=== PATIENT | female | born 1970 | race Caucasian/White ===

== ENCOUNTER → 2023-01-21 | Outpatient (CLI) | payer OTHER, SELFPAY ==
--- NOTE | 2023-01-21 09:00 | EMB_PTH ---
PATIENT: NINO RIVERA LOC: [facility] U#:[id number] AGE/SX: 52/F ROOM: RE01/21/[address]: Dr. Jonelle Blevins DO : 1970 BED: DIS: 01/21/2023 SPEC #: [id number] RECD: 01/21/23 18:50 STATUS: PAULINE RETara #: [id number] DEO: 01/21/23 09:[address]: Jonelle Blevins DEPT: SURGICAL PATHOLOGY RECD BY: Suzanne Rodriguez Tissues: Endometrium, NOS Procedures: Surgery Specimen Level IV HEADER OPERATION: Endometrial biopsy PRE-OP DIAGNOSIS: Abnormal uterine bleeding TISSUE SUBMITTED: Endometrial biopsy MICROSCOPIC DIAGNOSIS Endometrium, biopsy: Disordered proliferative endometrium with focal glandular and stromal breakdown. AM:rambo 01/23/2023 MICROSCOPIC DESCRIPTION Slides are reviewed. GROSS DESCRIPTION Received in fixative is one container labeled with the patient's name and designated endometrial biopsy. The specimen consists of multiple irregular fragments of red-anne soft tissue that in aggregate measure 2.5 x 2.0 x 0.2 cm. The specimen is totally submitted in one cassette. / AM:rambo 01/22/2023 :5 CPT: 63359
[2023-01-21 17:07] LABS: Hematocrit 34.4 % (37-47); Hemoglobin 10.5 g/dL (12.0-15.0); Mean Corp Hgb Conc 30.5 g/dL (32-36); Mean Corpuscular Hgb 25.2 pg (27.0-32.0); Mean Corpuscular Volume 82.7 fL (81-99); Mean Platelet Vol. 10.4 fl (6.2-12.0); Platelet Count 286 K/mm3 (150-450); RBC Distribution Width CV 14.3 % (11.6-14.6); RBC Distribution Width SD 42.8 fl (35.1-43.9); Red Blood Count 4.16 M/mm3 (4.2-5.4); White Blood Count 6.2 K/mm3 (4.4-11.0)
[2023-01-21 19:47] LABS: Follicle Stimulating Hormone 20.4 mIU/mL; Luteinizing Hormone 15.3 mIU/mL; Prolactin 6.3 ng/mL; T4 Free Direct 0.76 ng/dL (0.76-1.46); Thyroid Stim Hormone (TSH) 2.83 uIU/mL (0.358-3.74)
[2023-01-29 10:09] LABS: HPV APTIMA, High Risk Negative (Negative)
== END | disposition home or self-care (01) ==
LOC: WOBLAB 16:10
PROVIDERS: Visit Provider Student in an Organized Health Care Education/Training Program
DX: N93.9 Abnormal uterine and vaginal bleeding, unspecified (principal); Z12.4 Encounter for screening for malignant neoplasm of cervix
CPT/HCPCS: 36415; 83001; 83002; 84146; 84439; 84443; 85027; 87624; 88175; 88305; G0145

== ENCOUNTER 2023-04-24 05:27 | Day surgery (SDC) | payer SELFPAY, OTHER ==
--- NOTE | 2023-04-18 09:28 | EKG12_ITS ---
Test Reason : PREOP Blood Pressure : / mmHG Vent. Rate : 072 BPM Atrial Rate : 072 BPM P-R Int : 136 ms QRS Dur : 076 ms QT Int : 366 ms P-R-T Axes : 042 043 062 degrees QTc Int : 400 ms Normal sinus rhythm Normal ECG Confirmed by JARROD LEMON ([id number]), editor & co founder BRANDI SNOW ([id number]) on 04/22/2023 9:04:45 AM Referred By: Jonelle Blevins Confirmed By:JARROD LEMON
[2023-04-18 13:07] LABS: Hematocrit 39.3 % (37-47); Hemoglobin 11.6 g/dL (12.0-15.0); Mean Corp Hgb Conc 29.5 g/dL (32-36); Mean Corpuscular Hgb 23.4 pg (27.0-32.0); Mean Corpuscular Volume 79.4 fL (81-99); Mean Platelet Vol. 10.4 fl (6.2-12.0); Platelet Count 268 K/mm3 (150-450); RBC Distribution Width CV 16.7 % (11.6-14.6); RBC Distribution Width SD 47.1 fl (35.1-43.9); Red Blood Count 4.95 M/mm3 (4.2-5.4); White Blood Count 5.4 K/mm3 (4.4-11.0)
[2023-04-18 13:13] LABS: Magnesium 2.5 mg/dL (1.6-2.6)
[2023-04-18 13:18] LABS: International Normalized Ratio 0.9; Prothrombin Time (Protime)PT. 12.5 SECONDS (11.7-14.9)
[2023-04-18 13:19] LABS: Partial Thromboplast Time 30.2 Seconds (24.1-36.2)
[2023-04-24] VITALS (12 sets, daily range): BP systolic 109–134; BP diastolic 67–87; PULSE 58–98; RESP 12–16; TEMP 36.3–36.9; O2SAT 95–99; BMI 35.4
[2023-04-24 05:48] LABS: Internal QC Validated? YES +Cl - CLEAR BKGD; Pregnancy, Urine Negative Negative
[2023-04-24] MEDS: Lactated Ringers 1,000 ML 40 ML IV (06:27)
[2023-04-24] MEDS: Gabapentin 600 MG Tablet PO (06:29)
[2023-04-24] MEDS: dexAMETHasone 4 MG/ML Vial 8 MG IV (06:29)
[2023-04-24] MEDS: Acetaminophen 500 MG Tablet 1000 MG PO ×2 (06:29→13:06)
[2023-04-24] MEDS: Magnesium 1 GM over 15 mins IV (06:30)
[2023-04-24 06:34] LABS: Bedside Glucose 96 mg/dL (74-106)
--- NOTE | 2023-04-24 07:13 | PCM.HP.BLA ---
History and Physical Date of Admission: 04/24/23 HPI: 52-year-old female with abnormal uterine bleeding and prolapse plan for total laparoscopic hysterectomy, bilateral salpingo-oophorectomy, uterosacral ligament suspension, anterior repair, cystoscopy. Denies headache or vision changes, chest pain or shortness of breath, nausea or vomiting, diarrhea constipation, fevers or chills. [employer] history: Medical history: Denies Surgical history: 1. Tubal ligation 2007 2. Cholecystectomy 2013 3. Tonsillectomy age 10 4. ACL/meniscus repair 2021 Medications: Denies Allergies: Adhesive tape causes a rash Family history: Denies history of blood clots or bleeding disorders, no issues with anesthesia Social history: Denies tobacco, alcohol, drug use review of system: Negative otherwise stated above Physical exam: Blood pressure 133/72, heart rate 74, respiratory rate 16, temp 98.3 ?F, oxygen saturation 99% on room air General: No acute distress HEENT: Normal cephalic/atraumatic Cardiac: Regular rate rhythm Respiratory: Clear to auscultation bilaterally Abdomen: Soft, nontender Extremities: No edema Musculoskeletal: Moves all extremities equally Neurologic: No focal deficits Assessment/plan: 52-year-old female with abnormal uterine bleeding and prolapse plan for total laparoscopic hysterectomy, bilateral salpingo-oophorectomy, uterosacral ligament suspension, anterior repair, cystoscopy. All risk, benefits, alternatives discussed with patient. Risk include but are not limited to: Risk of bleeding to the point of transfusion, infection, injury to surrounding tissue including bowel/bladder potentially requiring prolonged Stovall catheter use/major abdominal vessels, VTE, ICU admission. Patient aware and consented.
--- NOTE | 2023-04-24 07:16 | OP.PCM_ITS ---
Report of Operation Date of Procedure: 04/24/23 Pre-Operative Diagnosis: Abnormal uterine bleeding, prolapse Post-Operative Diagnosis: Abnormal uterine bleeding, prolapse Surgery/Procedure Performed:: Total laparoscopic hysterectomy, bilateral salpingo-oophorectomy, lysis of adhesions, uterosacral ligament suspension, cystoscopy Description of Surgical Findings:: Normal-appearing external genitalia. Normal-appearing cervix. Normal appearing bilateral fallopian tubes and uterus. Moderate amount of omental adhesions to the left pelvic sidewall and anterior abdominal wall, extending to the left round ligament as well. Surgeon: Jonelle Belvins radiator core tester: Jose Cruz Healy Type of Anesthesia: General Specimen's removed: Uterus, cervix, bilateral fallopian tubes and ovaries Estimated Blood Loss (mL): 50 cc Fluids Replaced: 1800 cc Description of Procedure: Indications/Risks/Benefits: 52-year-old female with abnormal uterine bleeding and prolapse plan for total laparoscopic hysterectomy, bilateral salpingo- oophorectomy, uterosacral ligament suspension, anterior repair, cystoscopy. All risk, benefits, alternatives discussed with patient. Risk include but are not limited to: Risk of bleeding to the point of transfusion, infection, injury to surrounding tissue including bowel/bladder potentially requiring prolonged Stovall catheter use/major abdominal vessels, VTE, ICU admission. Patient aware and consented. Procedure: Patient taken to the operating room and placed under general anesthesia. Patient placed in the dorsal lithotomy position and prepped and draped in the usual sterile fashion. Stovall catheter placed. Weighted speculum placed in posterior vagina and Ivey retractor used to visualize cervix. Anterior lip of the cervix grasped with single-tooth tenaculum. Cervix gradually dilated. Uterus sounded to 10 cm. Two [id number] stitches placed at the 3 and 9 o'clock position on the cervix. Three cm uterine manipulator placed. Gloves were changed and attention turned to the anterior abdominal wall. Supraumbilical incision made with scalpel and subcutaneous tissue dissected off the fascia bluntly. Fascia grasped with Isabel clamps and incised with scalpel. Fascia tagged on either side with suture. Peritoneum grasped with hemostats and incised with scalpel. Peritoneum entered. Trocar placed. Abdomen insufflated noting findings above. Due to location of adhesions, a 5 mm trocar was placed at Ziegler's point. Right lower quadrant trocar also placed under direct visualization. Adhesions were lysed carefully using LigaSure device and blunt dissection. Bilateral ureters identified. Left IP ligament coagulated and cut. Dissection carried towards the left side of the uterus. Left round ligament incised. Vesicouterine peritoneum identified and incised, creating a bladder flap carried down to anterior cervix. Right IP ligament coagulated and cut using LigaSure device. Right round ligament incised and bladder flap extended. Uterus retroverted and bladder flap further dissected using blunt and sharp dissection. Dissection carried down the right and left sides of the uterus using LigaSure device. Further dissection of the bladder away from the anterior cervix completed using blunt and sharp dissection again. Uterine arteries coagulated and cut on the left side of the uterus. Uterine arteries coagulated cut on the right side of the uterus in similar fashion. Bilateral uterine arteries dissected away from the colpotomy cup. Colpotomy started at the left side and completed circumferentially. Uterus, bilateral fallopian tubes and ovaries removed through the vagina. Insufflation stopped. Bilateral uterosacral ligaments grasped with Allis clamp. Suture placed through the uterine ligaments and through the posterior vagina. Tagged. Vagina closed in a vertical fashion with a running stitch. Uterosacral suture tied, elevating the vaginal apex. Vagina irrigated, slight oozing noted. [id number]-ko-wclro suture placed in vagina irrigated again. Vagina noted to be h emostatic. Minimal anterior prolapse noted at this time. Therefore anterior repair was not completed. Cystoscopy was then completed. Stovall catheter removed. Cystoscope placed through the urethra noting intact bladder dome and bilateral ureteral jets. Cystoscope removed. Gloves changed and attention turned to the anterior abdominal wall again. Abdomen insufflated. Pelvis irrigated and suction. Hemostasis confirmed. Maribel placed along the vaginal cuff closure. Abdomen desufflated. Trocars removed. Supraumbilical fascia closed with running stitch. Skin closed with subcuticular stitch and skin glue. At the end of the procedure all needle, lap, sponge counts were correct. . UOP: 1200cc clear urine Complications None Admit VTE Documentation VTE Mechan Device Prophylaxis: SCD's
--- NOTE | 2023-04-24 07:17 | DCINST_ITS ---
Discharge Instructions Diet Discharge Diet: No restrictions Activity Discharge Activity: Return to Normal Activity and May Shower May resume sexual activity in: 6 weeks Weight Bearing Status: Weight bearing as tolerated Dressing / Incision Call your doctor if your incision/area has: Continuous Slow Oozing, Increased Redness and Foul Smelling Discharge Call your doctor if you observe: Fever of 101 or Higher, Inability to urinate, Inability to have a bowel movement, Using more than 1 pad per hour, Shortness of breath, Swelling in the ankles, Chest pain and Uncontrolled pain Cleanse incision/area with: Soap & Water and Keep Dressing Clean & Dry Follow Up Care Please Follow Up With: Jonelle Blevins DO When: 2 weeks post operative appointment Test Results: Test results from this visit will be discussed in further detail at your follow- up appointment, if applicable. Discharge Plan Admission Primary Reason for Your Visit: Hysterectomy Attending Provider: Jonelle Blevins Primary Care Provider: Cy Abbasi Discharge Orders/Prescriptions Prescriptions: New oxycodone 5 mg tablet 5 mg PO Q6H PRN (Reason: pain (scale score 7-10)) 4 Days Qty: 14 0RF Disposition Disposition (needs filled in before D/C Order can be placed): Home, Self Care
[2023-04-24] MEDS: Cefazolin 2 GM in 0.9% Normal Saline 100 ML IV (07:23)
--- NOTE | 2023-04-24 07:30 | HYST_PTH ---
PATIENT: NINO RIVERA LOC: [facility] – [place] U#:[id number] AGE/SX: 52/F ROOM: RE04/24/[address]: Dr. Jonelle Blevins DO : 1970 BED: DIS: 04/24/2023 SPEC #: [id number] RECD: 04/24/23 11:49 STATUS: PAULINE RETara #: [id number] DEO: 04/24/23 07:[address]: Jonelle Blevins DEPT: SURGICAL PATHOLOGY RECD BY: Ruth Justin ENTERED: 04/24/23 13:27 SP TYPE: HYSTERECT OTHR DR: Dr. Cy Abbasi MD Tissues: Uterus, NOS Procedures: Surgery Specimen Level V HEADER OPERATION: Hysterectomy, TLH, BSO, cysto uterosacral ligament PRE-OP DIAGNOSIS: Abnormal uterine bleeding and prolapse plan TISSUE SUBMITTED: Uterus, ovaries, fallopian tubes MICROSCOPIC DIAGNOSIS Uterus, cervix, bilateral fallopian tubes and ovaries, hysterectomy and bilateral salpingo-oophrectomy: Cervix - mild chronic cystic cervicitis. Endometrium - proliferative endometrium with focal cystic changes. Myometrium - focal adenomysosis. Right fallopian tube - hydrosalpinx, s/p tubal occlusion Left fallopian tube - hematosalpinx, s/p tubal occlusion Right ovary - cystic corpora albicans Left ovary - simple serous cystadenoma (1.0 cm in greatest dimension SJ: 04/25/2023 MICROSCOPIC DESCRIPTION Slides are reviewed. GROSS DESCRIPTION Received in fixative is one container labeled with the patient's name and designated uterus. The specimen consists of a hysterectomy specimen consisting of uterus, cervix and attached bilateral fallopian tubes and ovaries. The uterus with cervix weighs 131 gm and measures 10 x 7 x 5 cm. The serosal surface is smooth. The ectocervical mucosa is unremarkable. The external os is circular in contour. The endocervical canal measures 4.0 cm in length and the endocervical mucosa is unremarkable. The triangular endometrial cavity measures 4.5 cm in length and 2.5 cm in width. The endometrium is anne, glistening and measures 0.1 cm in thickness. Sections of the uterine wall do not reveal any mass lesions and measures 2.5 cm in thickness. The right fallopian tube measures 5.5 cm in length and 0.5 cm in diameter. Fimbrial end is identified. Fallopian tube is interrupted in middle and shows a plastic o-ring. Proximal portion of fallopian tube is dilated and filled with clear fluid. The right ovary measures 2.5 x 2 x 1.5 cm, Sections reveal a cyst measuring 1.0 cm in greatest dimension. The left fallopian tube measures 6 cm in length and 1.0 cm in diameter. Fimbrial end is identified. Fallopian tube is interrupted in middle and shows a plastic o-ring. Proximal portion of fallopian tube is dilated and filled with hemorrhagic fluid. The left ovary measures 2 x 2 x 1 cm, Sections reveal a cyst measuring 1.0 cm in greatest dimension. Electronics Assembler sections are submitted in 12 cassettes as follows: 1 - anterior cervix, 2 - posterior cervix, 3 & 4 - anterior uterine wall, 5 & 6 - posterior uterine wall, 7 - right fallopian tube, 8 & 9 - right ovary, 10 - left fallopian tube, 11 & 12- left ovary. /SJ: 04/24/23TC: 5 CPT: 52696
[2023-04-24] MEDS: Ondansetron 4 MG/2 ML Vial IV (10:00)
[2023-04-24] MEDS: oxyCODONE 5 MG Tablet PO (13:07)
== END 2023-04-24 15:19 | disposition home or self-care (01) ==
LOC: SDC 05:30 → AC 05:30
PROVIDERS: Anesthesiology; PCP Family Medicine; Referring Provider Student in an Organized Health Care Education/Training Program; Visit Provider Student in an Organized Health Care Education/Training Program
PROC: 0UT94ZZ Resection of Uterus, Percutaneous Endoscopic Approach (ICD-10-PCS; CPT 58571; principal; 2023-04-24 07:10)
DX: N70.11 Chronic salpingitis (principal); N83.11 Corpus luteum cyst of right ovary; N93.9 Abnormal uterine and vaginal bleeding, unspecified; D27.1 Benign neoplasm of left ovary
CPT/HCPCS: 58571; 00840; 36415; 81025; 82962; 83735; 85027; 85610; 85730; 86850; 86900; 86901; 88307; 93005; J7120; J2405; J3475